=== PATIENT | female | born 1990 | race Two or more races ===

== ENCOUNTER 2018-09-24 14:41 | Emergency (ER) | payer SELFPAY ==
--- NOTE | 2018-09-24 14:50 | PDOC ---
Rapid Medical Evaluation Time Seen by Provider: 09/24/18 14:48 Medical Evaluation: 09/24/18 14:48 I have performed a brief in-person evaluation of this patient. The patient presents with a chief complaint of:pain and burning with urination x 2 days, no fevers Pertinent physical exam findings: mild suprapubic tenderness I have ordered the following: UA, UCG, Urine cx The patient will proceed to the ED for further evaluation. Discharge Disposition - Diagnosis Dysuria - Referrals - Patient Instructions - Post Discharge Activity
[2018-09-24 14:58] VITALS: BP 108/67; PULSE 77; TEMP 98; BMI 18.3
[2018-09-24 15:33] LABS: HCG,QUALITATIVE URINE Negative
[2018-09-24 15:39] LABS: URINE APPEARANCE SLCLOUDY; URINE BILIRUBIN NEGATIVE (<2.0 mg/dL); URINE COLOR YELLOW; URINE GLUCOSE (UA) NEGATIVE (NEGATIVE); URINE KETONE NEGATIVE (NEGATIVE); URINE LEUK ESTERASE NEGATIVE (NEGATIVE); URINE NITRITE NEGATIVE (NEGATIVE); URINE PROTEIN NEGATIVE (NEGATIVE); URINE UROBILINOGEN 4.0 E.U/dl mg/dL (0.2-1.0)
--- NOTE | 2018-09-24 16:04 | PDOC ---
History of Present Illness - General Chief Complaint: Urinary Problem Stated Complaint: ABD PAIN Time Seen by Provider: 09/24/18 14:48 History Source: Patient Exam Limitations: Clinical Condition - History of Present Illness Initial Comments: 09/24/18 16:21 Patient with no significant past medication present with complaint of mild suprapubic discomfort and discomfort with urination for 3 days. Patient denies urinary frequency or urgency. She denies fever or back pain. Patient is sexually active with one partner and does not use control. Timing/Duration: other (3 days) Past History - Past Medical History Allergies/Adverse Reactions: Allergies Allergy/AdvReac Type Severity Reaction Status Date / Time No Known Allergies Allergy Verified 09/24/18 14:53 Home Medications: Ambulatory Orders Ciprofloxacin HCl [Cipro] 500 mg PO BID 5 Days #10 tablet 09/24/18 - Suicide/Smoking/Psychosocial Hx Smoking History: Never smoked Have you smoked in the past 12 months: No Information on smoking cessation initiated: No Hx Alcohol Use: No Drug/Substance Use Hx: No Review of Systems - Review of Systems Able to Perform ROS?: Yes Is the patient limited [place] proficient: No Constitutional: No: Fever HEENTM: No: Symptoms Reported Respiratory: No: Symptoms reported Cardiac (ROS): No: Symptoms Reported ABD/GI: No: Nausea, Vomiting : Yes: Dysuria. No: Burning, Discharge, Frequency, Flank Pain, Hematuria, Urgency All Other Systems: Reviewed and Negative *Physical Exam - Vital Signs Last Vital Signs Temp Pulse Resp BP Pulse Ox 98.0 F 77 18 108/67 100 09/24/18 14:50 09/24/18 14:50 09/24/18 14:50 09/24/18 14:50 09/24/18 14:50 - Physical Exam General Appearance: Yes: Nourished, Appropriately Dressed. No: Apparent Distress HEENT: positive: Normal ENT Inspection Neck: positive: Supple Respiratory/Chest: negative: Respiratory Distress, Accessory Muscle Use Cardiovascular: positive: Regular Rhythm, Regular Rate Gastrointestinal/Abdominal: positive: Flat, Soft. negative: Tender, Organomegaly Musculoskeletal: positive: Normal Inspection. negative: CVA Tenderness Extremity: positive: Normal Inspection Neurologic: positive: Fully Oriented Moderate Sedation - Procedure Monitoring Vital Signs: Procedure Monitoring Vital Signs Temperature 98.0 F 09/24/18 14:50 Pulse Rate 77 09/24/18 14:50 Respiratory Rate 18 09/24/18 14:50 Blood Pressure 108/67 09/24/18 14:50 O2 Sat by Pulse Oximetry (%) 100 09/24/18 14:50 ED Treatment Course - ADDITIONAL ORDERS Additional order review: Laboratory Results 09/24/18 15:00 Urine Color Yellow Urine Appearance Slcloudy Urine pH 6.0 Ur Specific [place] 1.023 Urine Protein Negative Urine Glucose (UA) Negative Urine Ketones Negative Urine Blood Negative Urine Nitrite Negative Urine Bilirubin Negative Urine Urobilinogen 4.0 e.u/dl H Ur Leukocyte Esterase Negative Urine HCG, Qual Negative Medical Decision Making - Medical Decision Making 09/24/18 16:23 Patient with no significant past medication present with complaint of suprapubic discomfort for 3 days. Patient last menstrual period September 09. Patient is sexually active with one partner. Clinical exam unremarkable. UA shows no acute pathology. Urine hCG negative. Patient is stable for discharge on outpatient treatment with [facility] follow-up *DC/Admit/Observation/Transfer Diagnosis at time of Disposition: Dysuria - Discharge Dispostion Disposition: HOME Condition at time of disposition: Stable - Prescriptions Prescriptions: Ciprofloxacin HCl [Cipro] 500 mg PO BID 5 Days #10 tablet - Referrals Schedule a call back: GC/CT f/u Referrals: Sonja Norwood MD [Staff Physician] - - Patient Instructions Printed Discharge Instructions: DI for Dysuria -- Adult Additional Instructions: Take medication as prescribed. You will be contacted with your urine results. Follow-up with referred [facility] - Post Discharge Activity
== END 2018-09-24 16:03 | disposition home or self-care (01) ==
LOC: JERFT 14:41
CPT/HCPCS: 36415; 81003; 84703; 87086; 87491; 87591; 99281-25